=== PATIENT | male | born 1995 | race Caucasian/White ===

== ENCOUNTER 2016-08-31 01:38 | Emergency (ER) | payer SELFPAY ==
[~2016-08-31] VITALS: Ht 175.3 cm; Wt 72.6 kg
[2016-08-31 01:38] VITALS: BP 120/67; PULSE 82; RESP 20; TEMP 98.5; O2SAT 98
--- NOTE | 2016-08-31 01:38 | NUR ---
Patient to ER bed 2 to gown for evaluation. Side rails up. Report given to MELONIE MURILLO.
--- NOTE | 2016-08-31 01:40 | NUR ---
PT BIB [facility] C/O ALTERED MENTAL STATUS SECONDARY TO ETOH INTOXICATION. (+)
[2016-08-31] MEDS ORDERED: ONDANSETRON HCL 4 MG/2 ML VIAL IVP ONE (02:00)
[2016-08-31] MEDS ORDERED: NACL 0.9% 1,000 ML IV ONE (02:00)
--- NOTE | 2016-08-31 02:00 | NUR ---
ER at bedside examining patient.
[2016-08-31 02:36] LABS: BASOPHILS % (AUTO) 0.5 % (0.0-2.0); EOSINOPHILS % (AUTO) 0.4 % (0.0-4.0); HEMATOCRIT 43.8 % (36-54); HEMOGLOBIN 14.9 g/dL (14.0-18.0); LYMPHOCYTES # (AUTO) 2.6 K/uL (1.0-5.5); LYMPHOCYTES % (AUTO) 39.7 % (20.5-51.5); MEAN CORPUSCULAR HEMOGLOBIN 30 pg (27-31); MEAN CORPUSCULAR HGB CONC 34 % (32-36); MEAN CORPUSCULAR VOLUME 87 fL (79.0-98.0); MONOCYTES # (AUTO) 0.4 K/uL (0.0-1.0); MONOCYTES % (AUTO) 6.1 % (1.7-9.3); NEUTROPHILS # (AUTO) 3.5 K/uL (1.8-7.7); NEUTROPHILS % (AUTO) 53.3 % (40.0-70.0); PLATELET COUNT (AUTO) 249 K/uL (130-430); RED BLOOD CELL COUNT(AUTO) 5.05 MIL/uL (4.2-6.2); RED CELL DISTRIBUTION WIDTH 11.9 % (9.0-15.0); WHITE BLOOD COUNT (AUTO) 6.5 K/uL (4.8-10.8)
[2016-08-31 02:47] LABS: ALBUMIN 3.9 g/dL (3.4-4.8); CALCIUM 8.4 mg/dL (8.4-11.0); CREATININE 0.94 mg/dL (0.55-1.30); POTASSIUM 3.9 mmol/L (3.5-5.1); TOTAL BILIRUBIN 0.2 mg/dL (0.0-1.0); TOTAL PROTEIN, SERUM 7.8 g/dL (6.4-8.3)
[2016-08-31 07:32] VITALS: BP 116/66; PULSE 82; RESP 20; TEMP 98.4; O2SAT 98
--- NOTE | 2016-08-31 07:32 | NUR ---
Patient given written and verbal discharge instructions and verbalizes understanding. ER MD discussed with patient the results and treatment provided. Given copies of tests performed in ER. Patient in stable condition. ID arm band removed. IV catheter removed intact and dressing applied, no active bleeding. Patient educated on pain management and to follow up with PMD. Pain Scale 0. Opportunity for questions provided and answered.
== END 2016-08-31 07:32 | disposition home or self-care (01) ==
LOC: SED 01:38
DX: F10.129 Alcohol abuse with intoxication, unspecified (principal)
CPT/HCPCS: 36415; 80053; 85025; 96361; 96374; 99284; G0482; J2405; J7030